=== PATIENT | male | born 1955 | race Hispanic/Latino ===

== ENCOUNTER → 2019-08-19 | Outpatient (CLI) | payer MEDICARE | END | disposition home or self-care (01) | LOC: SHCH 07:55 | PROVIDERS: ATTEND Internal Medicine Cardiovascular Disease | DX: I35.1 Nonrheumatic aortic (valve) insufficiency (principal); I65.23 Occlusion and stenosis of bilateral carotid arteries; I10 Essential (primary) hypertension ==

== ENCOUNTER 2021-05-10 07:21 | Day surgery (SDC) | payer MEDICARE ==
[2021-05-09 13:14] LABS: BASOPHILS % (AUTO) 0.7 % (0.0-5.0); EOSINOPHILS % (AUTO) 5.2 % (0.0-8.0); HEMATOCRIT 36.6 % (42-54); LYMPHOCYTES % (AUTO) 18.7 % (21.0-51.0); MEAN CORPUSCULAR HEMOGLOBIN 28.8 pg (27.0-33.0); MEAN CORPUSCULAR HGB CONC 32.2 g/dL (32.0-36.0); MEAN CORPUSCULAR VOLUME 89.3 fL (79-99); MONOCYTES % (AUTO) 8.6 % (3.0-13.0); NEUTROPHILS % (AUTO) 66.6 % (40.0-77.0); PLATELET COUNT (AUTO) 178 K/uL (130-400); RED CELL DISTRIBUTION WIDTH 13.9 % (11.0-15.5); WHITE BLOOD COUNT (AUTO) 8.2 K/uL (4.8-10.8)
[2021-05-09 13:23] LABS: CREATININE 1.8 mg/dL (0.5-1.5); POTASSIUM 4.2 mmol/L (3.5-5.1)
[2021-05-09 13:26] LABS: INR 1.84 (0.85-1.15)
[2021-05-09 13:27] LABS: PARTIAL THROMBOPLASTIN TIME 48.4 SEC (26.3-35.5)
[2021-05-09 14:15] VITALS: BP 135/64
[2021-05-10] VITALS (10 sets, daily range): BP systolic 111–132; BP diastolic 53–76
[~2021-05-10] VITALS: Ht 162.6 cm; Wt 91.2 kg
[~2021-05-10 07:21] MED LIST: 0.9%NACL 1000ML 1,000 ML IV SCH; ATOR40TA71 PO; CARV25TA PO; DILT30TA3 PO; DRON400T7 PO; FURO40TA5 PO; METF-444 PO; PANT40GR PO; RIVA20TA PO; SERT-440 PO
[2021-05-10] MEDS ORDERED: CARV6.25 PO (09:53)
[2021-05-10] MEDS ORDERED: PROPOFOL 10 MG/ML 20ML VIAL IV ONE (11:43)
== END 2021-05-10 13:15 | disposition home or self-care (01) ==
LOC: DAH 07:21
PROVIDERS: ATTEND Internal Medicine Cardiovascular Disease
DX: I48.19 Other persistent atrial fibrillation (principal); Z20.822 Contact with and (suspected) exposure to COVID-19; I10 Essential (primary) hypertension; E11.9 Type 2 diabetes mellitus without complications; E78.5 Hyperlipidemia, unspecified; Z79.899 Other long term (current) drug therapy; Z79.01 Long term (current) use of anticoagulants; Z86.73 Personal history of transient ischemic attack (TIA), and cerebral infarction without residual deficits; Z79.84 Long term (current) use of oral hypoglycemic drugs; Z98.890 Other specified postprocedural states
CPT/HCPCS: 36415; 80048; 82948; 85025; 85610; 85730; 87635; 92960; 93005; A4215; A4216; A4221; A4222; A4223 ×3; A4606; A4663; C9803; J2704; J7030

== ENCOUNTER → 2021-06-11 | Outpatient (CLI) | payer MEDICARE ==
[~2021-06-11] VITALS: Ht 162.6 cm; Wt 94.1 kg
[~2021-06-11] MED LIST changes: -0.9%NACL 1000ML 1,000 ML IV SCH; +AMIO200T68 PO; -CARV25TA PO; +CARV6.25 PO
[2021-06-11 13:10] VITALS: BP 111/64
[2021-06-11 13:31] LABS: BASOPHILS % (AUTO) 0.7 % (0.0-5.0); EOSINOPHILS % (AUTO) 6.6 % (0.0-8.0); HEMATOCRIT 38.9 % (42-54); LYMPHOCYTES % (AUTO) 21.7 % (21.0-51.0); MEAN CORPUSCULAR HGB CONC 32.4 g/dL (32.0-36.0); MEAN CORPUSCULAR VOLUME 89.6 fL (79-99); MONOCYTES % (AUTO) 7.4 % (3.0-13.0); NEUTROPHILS % (AUTO) 63.5 % (40.0-77.0); PLATELET COUNT (AUTO) 187 K/uL (130-400); RED BLOOD CELL COUNT(AUTO) 4.34 MIL/uL (4.50-6.20); RED CELL DISTRIBUTION WIDTH 14.3 % (11.0-15.5); WHITE BLOOD COUNT (AUTO) 8.6 K/uL (4.8-10.8)
[2021-06-11 14:02] LABS: ALBUMIN 3.8 g/dL (3.5-5.0); BILIRUBIN,TOTAL 0.5 mg/dL (0.2-1.0); CREATININE 1.7 mg/dL (0.5-1.5); POTASSIUM 4.6 mmol/L (3.5-5.1); THYROID STIMULATING HORMONE 2.82 uIU/mL (0.36-3.74); TOTAL PROTEIN, SERUM 7.5 g/dL (6.0-8.3)
== END | disposition home or self-care (01) ==
LOC: LAB 11:56
PROVIDERS: ATTEND Internal Medicine Cardiovascular Disease
DX: I48.19 Other persistent atrial fibrillation (principal)
CPT/HCPCS: 36415; 80053; 84443; 85025

== ENCOUNTER 2021-06-13 06:36 | Day surgery (SDC) | payer MEDICARE ==
[2021-06-11 13:59] LABS: INR 1.17 (0.85-1.15); PROTHROMBIN TIME 12.6 SEC (9.6-11.6)
[2021-06-11 14:00] LABS: PARTIAL THROMBOPLASTIN TIME 31.1 SEC (26.3-35.5)
[2021-06-12 12:27] VITALS: BP 111/64
[~2021-06-13] VITALS: Ht 162.6 cm; Wt 94.1 kg
[2021-06-13] VITALS (15 sets, daily range): BP systolic 115–145; BP diastolic 56–82
[~2021-06-13 06:36] MED LIST changes: -DRON400T7 PO
[2021-06-13 06:58] LABS: BASOPHILS % (AUTO) 0.7 % (0.0-5.0); EOSINOPHILS % (AUTO) 6.4 % (0.0-8.0); HEMATOCRIT 39.5 % (42-54); LYMPHOCYTES % (AUTO) 22.6 % (21.0-51.0); MEAN CORPUSCULAR HEMOGLOBIN 27.6 pg (27.0-33.0); MEAN CORPUSCULAR HGB CONC 31.1 g/dL (32.0-36.0); MEAN CORPUSCULAR VOLUME 88.8 fL (79-99); MONOCYTES % (AUTO) 8.2 % (3.0-13.0); NEUTROPHILS % (AUTO) 61.6 % (40.0-77.0); PLATELET COUNT (AUTO) 184 K/uL (130-400); RED BLOOD CELL COUNT(AUTO) 4.45 MIL/uL (4.50-6.20); RED CELL DISTRIBUTION WIDTH 14.2 % (11.0-15.5); WHITE BLOOD COUNT (AUTO) 8.7 K/uL (4.8-10.8)
[2021-06-13] MEDS ORDERED: 0.9%NACL 1000ML 1,000 ML IV SCH (08:00)
[2021-06-13] MEDS ORDERED: PROPOFOL 10 MG/ML 20ML VIAL IV ONE (08:18)
== END 2021-06-13 09:20 | disposition home or self-care (01) ==
LOC: DAH 06:36
PROVIDERS: ATTEND Internal Medicine Cardiovascular Disease
DX: I48.19 Other persistent atrial fibrillation (principal); Z20.822 Contact with and (suspected) exposure to COVID-19; I44.4 Left anterior fascicular block; I49.1 Atrial premature depolarization; E11.9 Type 2 diabetes mellitus without complications; I10 Essential (primary) hypertension; E78.5 Hyperlipidemia, unspecified; I25.10 Atherosclerotic heart disease of native coronary artery without angina pectoris; I48.91 Unspecified atrial fibrillation; Z98.890 Other specified postprocedural states; Z79.84 Long term (current) use of oral hypoglycemic drugs; Z79.899 Other long term (current) drug therapy; Z79.01 Long term (current) use of anticoagulants; Z95.0 Presence of cardiac pacemaker
CPT/HCPCS: 36415 ×3; 80053; 82948; 84443; 85025 ×2; 85610; 85730; 87635; 92960; 93005; A4215; A4216; A4221; A4222; A4223 ×3; A4606; A4615; A4663; C9803; J2704; J7030

== ENCOUNTER 2024-04-12 05:56 | Day surgery (SDC) | payer MEDICARE ==
[2024-04-08 11:12] VITALS: BP 135/60; PULSE 63; RESP 14; TEMP 97.9
[2024-04-08 11:28] LABS: BASOPHILS # (AUTO) 0.05 K/uL (0.00-0.20); BASOPHILS % (AUTO) 0.7 % (0.0-5.0); HEMATOCRIT 40.1 % (42-54); IMMATURE GRANULOCYTE ABSOLUTE 0.04 K/uL (0-1); LYMPHOCYTES # (AUTO) 1.3 K/uL (1.0-4.8); LYMPHOCYTES % (AUTO) 17.5 % (21.0-51.0); MEAN CORPUSCULAR HEMOGLOBIN 30.7 pg (27.0-33.0); MEAN CORPUSCULAR HGB CONC 32.2 g/dL (32.0-36.0); MEAN CORPUSCULAR VOLUME 95.5 fL (79-99); MONOCYTES # (AUTO) 0.8 K/uL (0.1-1.0); NEUTROPHILS % (AUTO) 67.3 % (40.0-77.0); PLATELET COUNT (AUTO) 178 K/uL (130-400); RED CELL DISTRIBUTION WIDTH 13.6 % (11.0-15.5); WHITE BLOOD COUNT (AUTO) 7.5 K/uL (4.8-10.8)
--- NOTE | 2024-04-08 11:37 | EKG ---
[facility] Test Date: 2024-04-08 Test Time: 12:02:27 Pat Name: SALINAS FELIZ Department: [facility] Room: Gender: M Search Engine Optimization Consultant: [id number] : 1955 Requested By: HUGO SANDRA Order Number: [id number] Reading MD: Hugo Dumont Measurements Intervals [place] Rate: 60 P: 0 NM: 185 QRS: -59 QRSD: 161 T: 97 QT: 505 QTc: 505 Interpretive Statements Ventricular-paced rhythm Compared to ECG 06/13/2021 06:47:08 Prolonged QT interval no longer present Electronically Signed On 04-08-2024 12:14:11 HEALTH SCIENCES MANAGER by Hugo Dumont Please click the below link to view image of tracing.
[2024-04-08 11:42] LABS: PROTHROMBIN TIME 11.2 SEC (9.6-11.6)
[2024-04-08 11:43] LABS: PARTIAL THROMBOPLASTIN TIME 30.3 SEC (26.3-35.5)
--- NOTE | 2024-04-08 11:53 | HMCIMG ---
CHEST 1VW HISTORY: Preop COMPARISON: None FINDINGS: A frontal projection of the chest was obtained. No acute pulmonary infiltrates is seen. The heart is borderline enlarged. Pacemaker is seen entering from the left. Degenerative changes are seen. No evidence of aortic calcification is seen. IMPRESSION: 1. No acute pulmonary infiltrate is seen.
[2024-04-08 12:03] LABS: B-TYPE NATRIURETIC PEPTIDE 79 pg/mL (0-100)
[2024-04-08 12:17] LABS: CREATININE 2.3 mg/dL (0.5-1.3); POTASSIUM 4.9 mmol/L (3.5-5.1)
--- NOTE | 2024-04-09 10:08 | NUR ---
abnormal labs: b50, cr 2.3,gfr [address] russo. hydration orders received
[~2024-04-12] VITALS: Ht 165.1 cm; Wt 100.6 kg
[2024-04-12] VITALS (10 sets, daily range): BP systolic 111–133; BP diastolic 51–78; PULSE 60–78; RESP 16–18; TEMP 97.2–97.9
[~2024-04-12 05:56] MED LIST changes: -AMIO200T68 PO; -ATOR40TA71 PO; -CARV6.25 PO; -DILT30TA3 PO; -METF-444 PO; +METO-409 PO; -PANT40GR PO
[2024-04-12] MEDS ORDERED: TELM40TA8 PO (07:00)
[2024-04-12] MEDS ORDERED: AMIO200T68 PO (07:00)
[2024-04-12] MEDS ORDERED: OMEP40CA21 PO (07:00)
[2024-04-12] MEDS ORDERED: METO-391 PO (07:00)
[2024-04-12] MEDS: 0.9%NACL 1000ML 1,000 ML IV SCH (07:01)
[2024-04-12] MEDS ORDERED: IOHEXOL 350 MG/ML 100ML INFUS..BTL IV ONE (07:07)
[2024-04-12] MEDS ORDERED: HEParin 10,000 UNIT/10ML (1,000 UNIT/ML) VIAL ONE (07:07)
[2024-04-12] MEDS ORDERED: niCARDIpine 25MG INJ IV ONE (07:07)
[2024-04-12] MEDS ORDERED: HEParin-NS 1,000 UNIT/500 ML 1,000 ML IV ONE (07:07)
[2024-04-12] MEDS ORDERED: LIDOCAINE HCL 400MG/20ML VIAL ONE (07:07)
[2024-04-12] MEDS ORDERED: NITROGLYCERIN 50MG VIAL ONE (07:08)
[2024-04-12] MEDS ORDERED: FENTanyl CITRate PF 50 MCG/1 ML 2ML VIAL ONE (07:33)
[2024-04-12] MEDS ORDERED: MIDAZOLAM HCL 1 MG/ML 2ML VIAL ONE (07:34)
[2024-04-12] MEDS ORDERED: GLUCAGON 1MG KIT 1 MG ML IM PRN (09:00)
[2024-04-12] MEDS ORDERED: DEXTROSE 50%-WATER 50 ML DISP.SYRIN IV PRN (09:00)
[2024-04-12] MEDS ORDERED: 0.9%NACL 1000ML 1,000 ML IV SCH (09:00)
--- NOTE | 2024-04-12 09:17 | PRN ---
PROCEDURE NOTE Indications: 1. Abnormal Lexiscan stress test done on 01/01/2024 (large size, moderate intensity, fixed perfusion defect seen in the basal/mid/apical inferior and inferolateral wall, visual TID). 2. Dilated cardiomyopathy 3. Chronic systolic congestive heart failure (LVEF 30-35% and grade 2 diastolic dysfunction by echocardiogram done on 11/25/2023) 4. History of nonobstructive CAD 5. 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 CKD IV Procedures: Coronary angiogram, femoral angiogram Introduction: After informed written consent was obtained, the patient was brought to the Catheterization Lab in the usual fasting state. Following sterile prep and drape, a time out was performed, then moderate sedation was administered, 1mg of Versed and 50mcg of Fentanyl, then 1% Lidocaine was infiltrated into the right femoral groin. Using a Modified Seldinger technique, a 6Fr Sheath was inserted into the right common femoral artery. While under fluoroscopic guidance, diagnostic coronary catheters were advanced over a wire into the central circulation where they were aspirated, flushed and placed to pressure monitoring, once the wire was removed. Coronary Angio: The left and right coronary arteries were engaged with appropriate catheters and angiography was performed under continuous pressure monitoring. Cardiac Findings: Right dominant system LM: Medium caliber vessel with mild luminal irregularities. The vessel bifurcates into the LAD and LCX. LAD: Medium caliber vessel with 30% stenosis in the ostial and proximal to mid LAD. The rest of the vessel has mild luminal irregularities. Diagonal 1: Small caliber vessel with mild luminal irregularities LCx: Medium caliber vessel with 40% stenosis in the ostial LCX and diffuse 20- 30% stenosis in the mid LCX High OM1: Medium caliber vessel with 40% stenosis in the ostial OM1 OM2: Medium caliber vessel with mild luminal irregularities RCA: Medium caliber vessel with diffuse 30-40% stenosis in the proximal RCA. The rest of the vessel has mild luminal irregularities. Are PDA: Small caliber vessel with mild luminal irregularities RPLV: Medium caliber vessel with 30% stenosis in the mid and distal segments of the vessel Medications given: Versed 2mg, Fentanyl 75mcg Coronary Intervention: None Complications: None Conscious Sedation Monitoring: Under my direct order and supervision, medication for moderate conscious sedation was administered by the nursing staff and the patients level of consciousness and physiological status was monitored by an independent trained nurse. Closure of Access Site: After the case completed the sheath was pulled and a 6Fr Angioseal was deployed in the right common femoral artery without complication. Conclusion: 1. Non-obstructive CAD (LAD, LCX, OM1, RCA) 2. False-positive Lexiscan stress test done on 01/01/2024 (likely artifact induced from diaphragmatic attenuation) 3. Nonischemic cardiomyopathy 4. Chronic systolic congestive heart failure (LV EF 30 35% and grade 2 diastolic dysfunction by echocardiogram done on 11/25/2023) 5. Conduction disorder s/p DC PPM, pending upgrade to Bi V ICD 6. CKD IV Recommendation: 1. Continue goal-directed medical therapy 2. Groin precautions. 3. 4 hours of bedrest 4. Start NS at 100 mL/hour x3 hours 5. Restart Xarelto tonight 6. Okay to DC once bed restless complete in the right groin is soft, and free of bruising, bleeding, and or hematoma formation. 7. No driving for the next 48 hours 8. No heavy lifting or strenuous exercise for the next two weeks. 9. Okay to proceed with BiV ICD upgrade HEENA SANDRA MD Apr 12, 2024 09:17
== END 2024-04-12 12:45 | disposition home or self-care (01) ==
LOC: DAH 05:56
PROVIDERS: ATTEND Internal Medicine Cardiovascular Disease
DX: R94.39 Abnormal result of other cardiovascular function study (principal); I48.0 Paroxysmal atrial fibrillation; I42.0 Dilated cardiomyopathy; I45.9 Conduction disorder, unspecified; I25.10 Atherosclerotic heart disease of native coronary artery without angina pectoris; I13.0 Hypertensive heart and chronic kidney disease with heart failure and stage 1 through stage 4 chronic kidney disease, or unspecified chronic kidney disease; N18.4 Chronic kidney disease, stage 4 (severe); I50.22 Chronic systolic (congestive) heart failure; K21.9 Gastro-esophageal reflux disease without esophagitis; I25.84 Coronary atherosclerosis due to calcified coronary lesion; Z79.01 Long term (current) use of anticoagulants; Z79.899 Other long term (current) drug therapy; Z86.73 Personal history of transient ischemic attack (TIA), and cerebral infarction without residual deficits; Z95.0 Presence of cardiac pacemaker
CPT/HCPCS: 80048; 83880; 85025; 85610; 85730; 36415; 71045; 93005; 93454; 82948 ×2; A4223 ×3; C1894 ×2; C1760; Q9965; J3010; J3490 ×2; J2250; J1644; A4215; A4222; A4221; A4663; A4216; A4606; 99156; 99157; Q9967

== ENCOUNTER → 2024-09-23 | Outpatient (CLI) | payer MEDICARE ==
[~2024-09-23] MED LIST changes: +AMIO200T73 PO; +ATOR40TA71 PO; +METO-391 PO; +OMEP40CA21 PO; +SERT-438 PO; +TELM40TA8 PO; +TRAM50TA4 PO
--- NOTE | 2024-09-24 11:31 | HMCSR ---
APPROVED REPORT PROCEDURE The patient was injected with 12.5 mg of cold stannous pyrophosphate. After 20-30 minutes the patien t was injected with 25 mCi of Technetium-99m Pertechnate. The patient was then imaged with ECG gating in the planar BANGLADESHI, anterior and lateral view(s). Findings Image quality is . Impressions Abnormal MUGA study. Mildly depressed left ventricular systolic function. The anterior, lateral and septal mccartney are grossly normal in fucntion. The inferior wall is mildly hy pokinetic. Left ventricle systolic function is mildly depressed, estimated LVEF is 45-50%
== END | disposition home or self-care (01) ==
LOC: RAH 09-22 12:44
PROVIDERS: ATTEND Internal Medicine Cardiovascular Disease
DX: R94.39 Abnormal result of other cardiovascular function study (principal); I42.0 Dilated cardiomyopathy; Z95.0 Presence of cardiac pacemaker
CPT/HCPCS: 78481; J1644; A9512

== ENCOUNTER 2024-09-30 08:44 | Day surgery (SDC) | payer MEDICARE, MEDICAID ==
[2024-09-28 12:51] LABS: IMMATURE GRANULOCYTE ABSOLUTE 0.03 K/uL (0-1); NUCLEATED RED BLOOD CELLS 0.0 % (0.0-0.19); PLATELET COUNT (AUTO) 183 K/uL (130-400); RED BLOOD CELL COUNT(AUTO) 4.42 MIL/uL (4.50-6.20); RED CELL DISTRIBUTION WIDTH 14.0 % (11.0-15.5); WHITE BLOOD COUNT (AUTO) 7.8 K/uL (4.8-10.8)
[2024-09-28 12:59] VITALS: BP 154/63; PULSE 55; RESP 17; TEMP 97.4
[2024-09-28 13:00] LABS: CREATININE 1.8 mg/dL (0.5-1.3); GLOMERULAR FILTR. RATE CALC 40.0 mL/min (>90); GLUCOSE,RANDOM 132.0 mg/dL (70-105); SODIUM SERUM 142.0 mmol/L (136-145); UREA NITROGEN, BLOOD 43.0 mg/dL (7-18)
[2024-09-28 13:01] LABS: INR 1.08 (0.85-1.15)
--- NOTE | 2024-09-28 13:30 | EKG ---
[facility] Test Date: 2024-09-28 Test Time: 12:42:24 Pat Name: SALINAS FELIZ Department: [facility] Room: Gender: M Contract Negotiation Specialist: [id number] : 1955 Requested By: JAIME CAUSEY Order Number: [id number] Reading MD: Maxx Logan Measurements Intervals [place] Rate: 55 P: 0 VA: 0 QRS: -46 QRSD: 116 T: 164 QT: 473 QTc: 452 Interpretive Statements Atrial paced rhythm Left anterior fascicular block LVH with secondary repolarization abnormality Compared to ECG 04/08/2024 12:02:27 Junctional rhythm now present Left anterior fascicular block now present Left ventricular hypertrophy now present Early repolarization now present Ventricular-paced complex(es) or rhythm no longer present Electronically Signed On 09-28-2024 22:19:58 CDT by Maxx Logan Please click the below link to view image of tracing.
[~2024-09-30] VITALS: Ht 162.6 cm; Wt 99.4 kg
[2024-09-30] VITALS (8 sets, daily range): BP systolic 141–159; BP diastolic 56–70; PULSE 54–62; RESP 12–18; TEMP 97.3–97.9
[~2024-09-30 08:44] MED LIST changes: -ATOR40TA71 PO; -FURO40TA5 PO; -METO-391 PO; -OMEP40CA21 PO; -SERT-438 PO; -SERT-440 PO; -TELM40TA8 PO; -TRAM50TA4 PO
[2024-09-30] MEDS ORDERED: SERT-438 PO (09:47)
[2024-09-30] MEDS ORDERED: ATOR40TA71 PO (09:47)
[2024-09-30] MEDS ORDERED: FURO40TA5 PO (09:47)
[2024-09-30] MEDS ORDERED: LIDOCAINE HCL 1% MDV 50ML VIAL ONE (12:33)
[2024-09-30] MEDS ORDERED: SODIUM BICARB 50MEQ 50ML VIAL 50 ML ONE (12:33)
[2024-09-30] MEDS ORDERED: IOHEXOL-350 50ML VIAL IV ONE (12:34)
[2024-09-30] MEDS ORDERED: MIDAZOLAM HCL 1 MG/ML 2ML VIAL ONE ×2 (12:47→12:57)
[2024-09-30] MEDS ORDERED: BACITRACIN 1 EACH PACKET TP ONE (13:12)
[2024-09-30] MEDS ORDERED: TRAM50TA4 PO (14:06)
--- NOTE | 2024-09-30 14:45 | NUR ---
POST SOLID WASTE FACILITY SUPERVISOR LEFT ARM IN SLING TO AFFECTED AREA. PRESSURE DRESSING IN PLACE TO LEFT CHEST. NO SWELLING OR REDNESS TO AFFECTED AREA. NO ACTIVE BLEEDING OR DRAINAGE NOTED. SURROUNDING SITE SOFT OT TOUCH. AT BEDSIDE.
--- NOTE | 2024-09-30 15:00 | NUR ---
RECOVERY LEFT ARM SLING IN PLACE. PRESSURE DRESSING TO LEFT CHEST. NO ACTIVE BLEEDING OR DRAINAGE NOTED TO SITE. NO REDNESS OR SWELLING NOTED TO DRESSING. LEFT UPPER CHEST SOFT TO TOUCH. AT BEDSIDE.
--- NOTE | 2024-09-30 15:15 | NUR ---
RECOVERY ARM SLING IN PLACE TO LEFT ARM. NO ACTIVE BLEEDING OR DRAINAGE NOTED. PRESSURE DRESSING TO LEFT UPPER CHEST. NO SWELLING OR REDNESS NOTED. LEFT UPPER CHEST SOFT TO TOUCH. AT BEDSIDE.
--- NOTE | 2024-09-30 15:30 | NUR ---
RECOVERY LEFT ARM SLING TO AFFECTED ARM. PRESSURE DRESSING TO LEFT UPPER CHEST. NO SWELLING OR REDNESS TO SITE. NO ACTIVE BLEEDING OR DRAINAGE. LEFT UPPER CHEST SOFT TO TOUCH. AT BEDSIDE.
--- NOTE | 2024-09-30 15:45 | NUR ---
RECOVERY LEFT ARM SLING IN PLACE. LEFT UPPER CHEST PRESSURE DRESSING TO SITE. NO ACTIVE BLEEDING OR DRAINAGE NOTED. NO REDNESS OR SWELLING NOTED. SITE SOFT TO TOUCH. AT BEDSIDE.
--- NOTE | 2024-09-30 15:55 | NUR ---
RECOVERY REMOVED PRESSURE DRESSING TO LEFT UPPER CHEST. LEFT SLING IN PLACE TO LEFT ARM. NO ACTIVE BLEEDING OR DRAINAGE TO SITE. NO REDNESS OR SWELLING NOTED TO SITE. SOFT TO TOUCH. AT BEDSIDE.
--- NOTE | 2024-09-30 16:15 | NUR ---
RECOVERY LEFT ARM IN SLING. DRESSING DRY AND INTACT. NO ACTIVE BLEEDING OR DRAINAGE. NO SWELLING OR REDNESS TO SITE. LEFT UPPER CHEST SOFT TO TOUCH. AT BEDSIDE.
--- NOTE | 2024-09-30 16:39 | HMCIMG ---
EXAM: CR Chest, 2 View. CLINICAL HISTORY: s/p C SOFTWARE ENGINEER upgrade COMPARISON: X-ray chest 04/08/2024. FINDINGS: LUNGS: The lungs show no infiltrate or other acute finding. PLEURAL SPACES: No evidence of pleural effusion or pneumothorax. MEDIASTINUM: Cardiac size and mediastinal contours within normal limits. Multilead left pacer in place BONES: No acute osseous abnormality. IMPRESSION: No acute cardiopulmonary pathology is evident. /[place]
--- NOTE | 2024-09-30 16:45 | NUR ---
RECOVERY LEFT SLING TO ARM. DRESSING DRY AND INTACT. NO ACTIVE BLEEDING OR DRAINAGE NOTED. NO SWELLING OR REDNESS NOTED. LEFT UPPER SITE SOFT TO TOUCH. AT BEDSIDE.
--- NOTE | 2024-09-30 18:07 | NUR ---
DR. MARIUM CHAUHAN FOR PATIENT OT GO HOME.
== END 2024-09-30 18:10 | disposition home or self-care (01) ==
LOC: DAH 08:44
PROVIDERS: ATTEND Internal Medicine Cardiovascular Disease
DX: Z45.010 Encounter for checking and testing of cardiac pacemaker pulse generator [battery] (principal); I13.0 Hypertensive heart and chronic kidney disease with heart failure and stage 1 through stage 4 chronic kidney disease, or unspecified chronic kidney disease; I50.40 Unspecified combined systolic (congestive) and diastolic (congestive) heart failure; I25.10 Atherosclerotic heart disease of native coronary artery without angina pectoris; E11.22 Type 2 diabetes mellitus with diabetic chronic kidney disease; N18.9 Chronic kidney disease, unspecified; E78.5 Hyperlipidemia, unspecified; I44.4 Left anterior fascicular block; I42.0 Dilated cardiomyopathy; I48.91 Unspecified atrial fibrillation; Z79.01 Long term (current) use of anticoagulants; Z79.899 Other long term (current) drug therapy
CPT/HCPCS: 80048; 85025; 85610; 85730; 36415; 93005; 33229; 33225; 82948 ×2; 71045; 99156; 99157 ×5; C1769 ×2; C1900; C2621; J3010; J0690; J0665; J3490 ×2; J2250 ×2; Q9967; A4215; A4222; A4221; A4663; A4216; A4606; A4223 ×3

== ENCOUNTER 2024-11-24 07:18 | Day surgery (SDC) | payer MEDICARE, MEDICAID ==
[2024-11-22 15:06] VITALS: BP 112/64; PULSE 110; RESP 13; TEMP 97.3
[2024-11-22 15:26] LABS: IMMATURE GRANULOCYTE ABSOLUTE 0.04 K/uL (0-1); NUCLEATED RED BLOOD CELLS 0.0 % (0.0-0.19); PLATELET COUNT (AUTO) 207 K/uL (130-400); RED BLOOD CELL COUNT(AUTO) 4.67 MIL/uL (4.50-6.20); RED CELL DISTRIBUTION WIDTH 15.7 % (11.0-15.5); WHITE BLOOD COUNT (AUTO) 10.0 K/uL (4.8-10.8)
[2024-11-22 15:34] LABS: CREATININE 2.2 mg/dL (0.5-1.3); GLOMERULAR FILTR. RATE CALC 31.0 mL/min (>90); GLUCOSE,RANDOM 118.0 mg/dL (70-105); SODIUM SERUM 140.0 mmol/L (136-145); UREA NITROGEN, BLOOD 58.0 mg/dL (7-18)
--- NOTE | 2024-11-23 14:55 | NUR ---
REPORT DR CAUSEY REVIEWED BMP. OK TO PROCEED
[2024-11-24] VITALS (7 sets, daily range): BP systolic 87–129; BP diastolic 51–74; PULSE 70–109; RESP 12–17; TEMP 97.8
[~2024-11-24] VITALS: Ht 162.6 cm; Wt 101.3 kg
[~2024-11-24 07:18] MED LIST changes: +ATOR40TA71 PO; +FURO40TA5 PO; +SERT-438 PO; +TRAM50TA4 PO
--- NOTE | 2024-11-24 10:35 | EKG ---
[facility] Test Date: 2024-11-24 Test Time: 07:38:50 Pat Name: SALINAS FELIZ Department: [facility] Room: [facility] Gender: M Market Analysis Director: [id number] : 1955 Requested By: JAIME CAUSEY Order Number: [id number] Reading MD: Reece Vanegas Measurements Intervals [place] Rate: 104 P: -75 [place]: 0 QRS: -69 QRSD: 126 T: 119 QT: 397 QTc: 524 Interpretive Statements Ventricular-paced complexes Nonspecific IVCD with LAD LVH with secondary repolarization abnormality Compared to ECG 09/28/2024 12:42:24 Intraventricular conduction delay now present Atrial-paced complex(es) or rhythm no longer present Left anterior fascicular block no longer present Electronically Signed On 11-24-2024 15:53:54 CDT by Reece Vanegas Please click the below link to view image of tracing.
--- NOTE | 2024-11-24 10:35 | EKG ---
[facility] Test Date: 2024-11-24 Test Time: 09:58:42 Pat Name: SALINAS FELIZ Department: [facility] Room: [facility] Gender: M Airborne Operations: [id number] : 1955 Requested By: JAIME CAUSEY Order Number: [id number] Reading MD: Reece Vanegas Measurements Intervals [place] Rate: 77 P: 0 MN: 64 QRS: 234 QRSD: 154 T: 52 QT: 505 QTc: 571 Interpretive Statements Atrial-ventricular dual-paced rhythm Compared to ECG 11/24/2024 07:38:50 Intraventricular conduction delay no longer present Left ventricular hypertrophy no longer present Early repolarization no longer present Electronically Signed On 11-24-2024 15:54:19 CDT by Reece Vanegas Please click the below link to view image of tracing.
--- NOTE | 2024-11-24 11:10 | NUR ---
BOTH PT AND GIVEN VERBAL AND WRITTEN DISCHARGE INSTRUCTIONS, INFORMATION ON CARDIAC ABLATIONS GIVEN WELL TOO. IV REMOVED SITE ASYMPTOMATIC. PT TAKEN OUT VIA WHEELCHAIR DRIVING
--- NOTE | 2024-11-24 11:18 | PRN ---
Procedure Note Date of procedure: 11/24/24 Diagnosis: Persistent atrial fibrillation Procedure: 1. Cardioversion 2. ICD programming evaluation multi x2 Physician: Carrington Causey MD The patient was brought to the day patient area in a fasting state. The patient's ICD was interrogated and reprogrammed. Anesthesia was provided by the anesthesia service. Cardioversion was performed with a synchronized shock at 200 joules resulting in sinus rhythm. The patient tolerated the procedure well. The ICD was again interrogated and reprogrammed. Final diagnosis: Persistent atrial fibrillation, status post successful cardioversion Plan: 1. The patient will be discharged later today and will follow up with me in the office in approximately two weeks. ACRRINGTON CAUSEY MD Nov 24, 2024 11:18
== END 2024-11-24 11:20 | disposition home or self-care (01) ==
LOC: DAH 07:18
PROVIDERS: ATTEND Internal Medicine Cardiovascular Disease
DX: I48.19 Other persistent atrial fibrillation (principal); I42.0 Dilated cardiomyopathy; N18.30 Chronic kidney disease, stage 3 unspecified; Z79.899 Other long term (current) drug therapy; Z98.890 Other specified postprocedural states; Z86.73 Personal history of transient ischemic attack (TIA), and cerebral infarction without residual deficits; I12.9 Hypertensive chronic kidney disease with stage 1 through stage 4 chronic kidney disease, or unspecified chronic kidney disease; I25.10 Atherosclerotic heart disease of native coronary artery without angina pectoris
CPT/HCPCS: 80048; 85025; 36415; 92960; 93005 ×2; 93280; 93287; J2704; J3490; A4620; A4215; A4222; A4221; A4663; A4216; A4606; A4223 ×3